=== PATIENT | male | born 1960 | race Caucasian/White ===

== ENCOUNTER → 2021-01-08 | Outpatient (CLI) | payer OTHER ==
[~2021-01-08] MED LIST: COREG 3.125M3.125 MG PO; FUROSEMIDE40 MG PO; IBUPROFEN800 MG PO; LISINOPRIL10 MG PO; POTASSIUM CHLO20 ME1 PO
== END ==
LOC: KOH-I 11:15
DX: M51.27 Other intervertebral disc displacement, lumbosacral region (principal)
CPT/HCPCS: 72148

== ENCOUNTER → 2022-01-15 | Outpatient (CLI) | payer OTHER | LOC: HEART CORB 13:19 | DX: I08.8 Other rheumatic multiple valve diseases (principal); I27.20 Pulmonary hypertension, unspecified; Z95.2 Presence of prosthetic heart valve | CPT/HCPCS: 93306 ==

== ENCOUNTER 2022-02-02 18:38 | Emergency (ER) | payer OTHER ==
[2022-02-02 19:18] LABS: HEMOGLOBIN 15.7 gm/dl (14.0-17.5); RED BLOOD COUNT 6.02 M/UL (4.20-5.50); WHITE BLOOD COUNT 11.7 K/UL (4.5-11.0)
== END 2022-02-03 00:45 | disposition short-term general hospital (02) ==
LOC: ER1 18:38
PROVIDERS: Family Medicine
DX: N17.9 Acute kidney failure, unspecified (principal); R34 Anuria and oliguria; E87.2 Acidosis; J96.11 Chronic respiratory failure with hypoxia; E66.01 Morbid (severe) obesity due to excess calories; I10 Essential (primary) hypertension; R77.8 Other specified abnormalities of plasma proteins; Z95.2 Presence of prosthetic heart valve; Z79.01 Long term (current) use of anticoagulants; Z79.899 Other long term (current) drug therapy; Z20.822 Contact with and (suspected) exposure to COVID-19
CPT/HCPCS: 36556; 36600; 51702; 71045; 80053; 80307; 81001; 82550; 82553; 82803; 83605; 83735; 83880; 84100; 84484; 85025; 85610; 86140; 87040; 87086; 93005; 96361; 96374; 96375; 99285; G0480; J0696; J2310; U0002